=== PATIENT | female | born 1970 | race Caucasian/White ===

== ENCOUNTER 2018-05-13 08:27 | Emergency (ER) | payer BC ==
[~2018-05-13] VITALS: Ht 170.2 cm; Wt 89.8 kg
[2018-05-13 08:32] VITALS: BP_SYST 150
[2018-05-13] MEDS ORDERED: LORazepam 2 MG/ML VIAL (FOR ER USE) IVP ONE (08:45)
[2018-05-13] MEDS ORDERED: KETOROLAC TROMETHAMINE 30 MG VIAL IVP ONE (08:45)
[2018-05-13 09:12] LABS: BASOPHILS # (AUTO) 0.1 K/uL (0.0-0.2); BASOPHILS % (AUTO) 0.7 % (0.0-2.0); EOSINOPHILS # (AUTO) 0.3 K/uL (0.0-0.4); EOSINOPHILS % (AUTO) 4.2 % (0.0-4.0); HEMATOCRIT 46.7 % (36-48); HEMOGLOBIN 15.3 g/dL (12.0-16.0); LYMPHOCYTES # (AUTO) 2.2 K/uL (1.0-5.5); LYMPHOCYTES % (AUTO) 29.7 % (20.5-51.5); MEAN CORPUSCULAR HEMOGLOBIN 31 pg (27-31); MEAN CORPUSCULAR HGB CONC 33 % (32-36); MEAN CORPUSCULAR VOLUME 94 fL (79.0-98.0); MONOCYTES # (AUTO) 0.8 K/uL (0.0-1.0); MONOCYTES % (AUTO) 10.5 % (1.7-9.3); NEUTROPHILS # (AUTO) 4.2 K/uL (1.8-7.7); NEUTROPHILS % (AUTO) 54.9 % (40.0-70.0); PLATELET COUNT (AUTO) 382 K/uL (130-430); RED BLOOD CELL COUNT(AUTO) 4.99 MIL/uL (4.2-6.2); RED CELL DISTRIBUTION WIDTH 12.1 % (9.0-15.0); WHITE BLOOD COUNT (AUTO) 7.6 K/uL (4.8-10.8)
[2018-05-13 10:00] LABS: CALCIUM 8.7 mg/dL (8.4-11.0); CREATININE 0.98 mg/dL (0.55-1.30); POTASSIUM 4.7 mmol/L (3.5-5.1)
[2018-05-13 10:05] LABS: ALBUMIN 3.9 g/dL (3.4-4.8); TOTAL BILIRUBIN 0.4 mg/dL (0.0-1.0)
[2018-05-13 11:15] VITALS: BP_SYST 148
== END 2018-05-13 11:15 | disposition home or self-care (01) ==
LOC: SED 08:27
DX: S29.012A Strain of muscle and tendon of back wall of thorax, initial encounter (principal); Z88.0 Allergy status to penicillin; X58.XXXA Exposure to other specified factors, initial encounter; Y93.89 Activity, other specified; Y92.89 Other specified places as the place of occurrence of the external cause; Y99.8 Other external cause status
CPT/HCPCS: 36415; 71045; 80053; 82550; 84484; 85025; 93005; 96374; 96375; 99284; J1885; J2060

== ENCOUNTER 2019-12-08 05:04 | Emergency (ER) | payer BC ==
[~2019-12-08] VITALS: Ht 170.2 cm; Wt 92.5 kg
[2019-12-08 05:15] VITALS: BP_SYST 134
--- NOTE | 2019-12-08 05:15 | NUR ---
Patient to ER bed 2 to gown for evaluation. Side rails up. Report given to
--- NOTE | 2019-12-08 05:17 | NUR ---
Pt brought in by self. Pt awake, alert, oriented x4. Pt states she awoke this morning with R shoulder pain 10/. Pt denies any trauma or precipitating factors. pt states that she has had a similar issue before and was given steroid shot and pain medication for the issue to resolve. Pt denies chest pain, nausea, vomiting, diarrhea, shortness of breath, any other medical complaint at this time.
--- NOTE | 2019-12-08 05:18 | NUR ---
ER at bedside examining patient.
[2019-12-08] MEDS ORDERED: METHOCARBAMOL 1000 MG/10 ML VIAL IM ONE (05:30)
--- NOTE | 2019-12-08 06:14 | NUR ---
[facility].
[2019-12-08] MEDS ORDERED: KETOROLAC TROMETHAMINE 60 MG/2 ML VIAL IM ONE ×2 (06:45→06:57)
[2019-12-08] MEDS ORDERED: MORPHINE 4 MG/ML INJ. SYRINGE IM ONE (07:15)
[2019-12-08 07:39] VITALS: BP_SYST 134
--- NOTE | 2019-12-08 07:40 | NUR ---
Patient given written and verbal discharge instructions and verbalizes understanding. ER MD discussed with patient the results and treatment provided. Patient in stable condition. ID arm band removed. Rx of norco and ibuprofen given. Patient educated on pain management and to follow up with PMD. Pain Scale 0/10. Opportunity for questions provided and answered. Medication side effect fact sheet provided.
== END 2019-12-08 07:39 | disposition home or self-care (01) ==
LOC: SED 05:04
DX: M75.21 Bicipital tendinitis, right shoulder (principal); Z88.0 Allergy status to penicillin
CPT/HCPCS: 73030; 73060; 96372; 99284; J1885; J2270; J2800

== ENCOUNTER 2020-01-10 09:43 | Emergency (ER) | payer BC ==
[~2020-01-10] VITALS: Ht 167.6 cm; Wt 93.4 kg
[2020-01-10 09:43] VITALS: BP_SYST 103
[2020-01-10 10:07] VITALS: BP_SYST 103
== END 2020-01-10 10:05 | disposition home or self-care (01) ==
LOC: SED 09:43
DX: M94.0 Chondrocostal junction syndrome [Tietze] (principal); Z88.0 Allergy status to penicillin
CPT/HCPCS: 99282